=== PATIENT | male | born 1980 | race Caucasian/White ===

== ENCOUNTER 2019-12-04 17:44 | Emergency (ER) | payer OTHER, SELFPAY ==
[2019-12-04 17:56] VITALS: BP 121/89; PULSE 65; RESP 18; TEMP 37; O2SAT 98
--- NOTE | 2019-12-04 18:00 | ED.GENADUL_ITS ---
Discharge Plan Disposition Patient Disposition: HOME Condition: Improving Discharge Details Chief Complaint: EyeProblem Clinical Impression: Abrasion of cornea, left Primary Care Provider: Ngoc Rodriguez ED Provider: Carlos Ingram Home Meds and New Rx's Prescriptions: Continued lisinopril 10 mg Tablet RF: 0 Discharge Instructions Instructions: Corneal Abrasion (ED) Additional Instructions: You underwent slit lamp examination today which revealed superficial abrasions to the anterior portion of your left cornea. Please use erythromycin ointment 4 times daily for 4 to 5 days time. Cool compress to reduce discomfort, sunglasses while out side. Return for development of fever, discharge from the eye, or any other acute concerns. May use Tylenol and/or ibuprofen as needed for pain. Continue your previously prescribed lisinopril. Medical Decision Making 39-year-old male was drilling wood in the wind today when he felt a foreign body into his left eye. He immediately irrigated with water, had persistent discomfort and tearing which brought him to the ER for evaluation. He is otherwise healthy gentleman. On exam his left eye is injected with slight chemosis temporal aspect. There is no evidence of foreign body. Fluorescein exam performed with superficial abrasions to the cornea outside the axis of vision. The lid was everted without evidence of foreign body. We will place the patient on erythromycin ointment, he will use a cool compress, he was instructed as to return precautions and is stable for discharge at this time. HPI General Mode of arrival: ambulatory . Date/Time Provider Initiated Documentation: 12/04/19 17:46 . Limitations to Documentation: no limitations . Information obtained by: patient . History of Present Illness 39 year old M presents to the emergency department with the chief complaint of Left eye foreign body sensation after drilling wood, described as mild, and is localized to the eyes and left. Patient reports no radiation. Patient started experiencing this minute(s) and it has been constant. No relieving factors improve symptom(s), Patient notes no other symptoms.. Patient did receive the following treatments prior to arrival, none Related Data Home Medications Medication Instructions Recorded Confirmed lisinopril 12/04/19 Allergies Allergy/AdvReac Type Severity Reaction Status Date / Time No Known Allergies Allergy Unverified 12/04/19 17:59 General Stated Complaint: EyeProblem BRITTANY: 3 Review of Systems Narrative: Otherwise healthy male who has been well. 4 systems reviewed and negative Exam Narrative Exam Narrative: GEN: awake, alert, oriented 3. Pleasant, well groomed, interactive. HEAD: Normocephalic, atraumatic ENT: Mucous membranes moist, oropharynx unremarkable, External ear exam unremarkable EYES: PERRL, EOMI, right eye unremarkable, left eye with conjunctival injection, chemosis temporal aspect. Slit-lamp exam with fluorescein reveals superficial abrasions outside the axis of vision primarily left [place] side. Negative Elicia sign NECK: Full ROM, no LIAM, no menigismus CHEST/RESP: No respiratory distress Neuro: Grossly normal neurologic exam, conversant, interactive. Psych: Speech fluent, thoughts congruent, affect normal Course Vital Signs Vital signs: Vital Signs Temperature 37 C 12/04/19 17:56 Pulse 65 12/04/19 17:56 Respiratory Rate 18 12/04/19 17:56 Blood Pressure 121/89 12/04/19 17:56 Pulse Oximetry 98 12/04/19 17:56 Temperature 37 C 12/04/19 17:56 Temperature Source Temporal Artery Scan 12/04/19 17:56 Pulse 65 12/04/19 17:56 Respiratory Rate 18 12/04/19 17:56 Blood Pressure 121/89 12/04/19 17:56 Blood Pressure Position Sitting 12/04/19 17:56 Pulse Oximetry 98 12/04/19 17:56 Oxygen Delivery Method Room Air 12/04/19 17:56 Oxygen Flow Rate 0 12/04/19 17:56 Pain Level 8 12/04/19 17:56 Procedures Other Description: Slit-lamp examination with fluorescein performed, no foreign body seen
[2019-12-04] MEDS: Fluorescein STRIPS 100/BOX 1 MG OP (18:25)
[2019-12-04] MEDS: Tetracaine 0.5% 4 ML BTL OP (18:25)
[2019-12-04] MEDS: Erythromycin Ophth Oint 3.5 GM TUBE OP (18:25)
[2019-12-04] MEDS: Balanced Salt Solution 15 ML BTL OP (18:25)
== END 2019-12-04 18:24 | disposition home or self-care (01) ==
LOC: ER 18:24
PROVIDERS: Emergency Provider Emergency Medicine; PCP Nurse Practitioner Family
DX: S05.02XA Injury of conjunctiva and corneal abrasion without foreign body, left eye, initial encounter (principal); W20.8XXA Other cause of strike by thrown, projected or falling object, initial encounter; Y99.0 Civilian activity done for income or pay; I10 Essential (primary) hypertension
CPT/HCPCS: 99283